=== PATIENT | male | born 1950 | race African-American/Black ===

== ENCOUNTER 2024-03-18 15:42 | Outpatient (REF) | payer MEDICARE, SELFPAY ==
[2024-03-18 17:27] LABS: MANUAL DIFF FLAG NO
[2024-03-18 17:42] LABS: Basophils Absolute Auto 0.1 X10*3/uL (0.0-0.2); Basophils Percent Auto 0.7 % (0-2); Eosinophils Absolute Auto 0.2 X10*3/uL (0.0-0.4); Eosinophils Percent Auto 2.9 % (0-4); Hematocrit 36.3 % (42.0-52.0); Hemoglobin 11.7 g/dl (14.0-18.0); Imm Gran Abs Auto 0.02 X10*3/uL (0.00-0.03); Imm Gran Pct Auto 0.3 % (0.0-0.4); Lymphocytes Percent Auto 28.5 % (20-40); Mean Corpuscular HGB Conc 32.2 g/dl (31.0-36.0); Mean Corpuscular Hemoglobin 28.7 pg (27.0-33.0); Mean Platelet Volume 9.8 fL (9.4-12.4); Monocytes Absolute Auto 0.8 X10*3/uL (0.1-1.2); Monocytes Percent Auto 11.5 % (2-11); Neutrophils Absolute Auto 3.8 x10*3/uL (2.0-8.3); Neutrophils Percent Auto 56.1 % (45-73); Platelet Count 297 X10*3/uL (160-400); Red Blood Count 4.08 X10*6/uL (4.60-5.80); Red Cell Distribution Width 14.4 % (11.0-16.0); White Blood Count 6.8 X10*3/uL (4.8-10.8)
[2024-03-18 17:48] LABS: Anion Gap 13 (12-20); Blood Urea Nitrogen 23 mg/dL (9-16); Calcium 9.6 mg/dL (8.4-10.2); Carbon Dioxide 25 mmol/L (22-29); Chloride 106 mmol/L (96-108); Estimated Glomerular Filt Rate 27; Potassium 3.4 mmol/L (3.3-5.1); Sodium 141 mmol/L (135-145)
[2024-03-18 18:26] LABS: Creatinine Urine 179.78 mg/dL; Protein/Creatinine Ratio, Ur 0.18 (<0.2); Total Protein Urine Random 33 mg/dL (<12)
== END 2024-03-18 15:43 | disposition home or self-care (01) ==
LOC: HO.HKASLDS 15:42
PROVIDERS: Visit Provider Internal Medicine Nephrology
DX: I12.9 Hypertensive chronic kidney disease with stage 1 through stage 4 chronic kidney disease, or unspecified chronic kidney disease (principal); N18.31 Chronic kidney disease, stage 3a
CPT/HCPCS: 36415; 80051; 82310; 82565; 82570; 84156; 84520; 85025

== ENCOUNTER 2024-03-20 14:30 | Outpatient (AMB) | payer MEDICARE, SELFPAY ==
--- NOTE | 2024-03-20 13:36 | HO.NEPHOV_ITS ---
Vital Signs 03/20/24 14:48 Height 6 ft 1 in Weight 230 lb 6 oz BMI 30.4 BP 140/80 H Blood Pressure Location Rt brachial Position Sitting Pulse 48 L Pulse Source Pulse Oximeter Pulse Oximetry (%) 98 Oxygen Delivery Method Room Air Intake Visit Reasons: Previous patient Analytics Architect Required: No Accompanied by: Self / Same As Patient Allergies cat dander Allergy (Verified 03/20/24 14:45) Unknown HPI Comments Details: Eloy seen in the office in follow-up of his chronic kidney disease and hypertension. He has longstanding hypertension as as CKD. 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 He denies any nausea, vomiting, diarrhea, chest pain, shortness of breath, pedal edema, orthostatic symptoms. He does not take any nonsteroidal anti-inflammatories. He is compliant with his medications. He does not monitor his blood pressure closely at home. His weight has been stable. He feels tired. [facility] Medical History (Updated 03/20/24 @ 14:45 by Riddhi Marin MA) CKD stage 3a, GFR 45-59 ml/min Hypertension Angiomyolipoma Secondary hyperparathyroidism (of renal origin) Surgical History (Updated 03/20/24 @ 14:53 by Riddhi Marin MA) History of back surgery Family History (Updated 03/20/24 @ 14:54 by Riddhi Marin MA) Mother Diabetes Hypertension Sister Diabetes Hypertension Social History (Updated 03/20/24 @ 14:52 by Riddhi Marin MA) Alcohol intake: never Patient Tobacco Use Status: Never used Tobacco Use of substances other than those prescribed or required for medical reasons: No Review of Systems Const All systems reviewed & are unremarkable except as noted in HPI and below Physical Exam Vital Signs: Last Vital Signs Pulse 48 L 03/20/24 14:48 BP 140/80 H 03/20/24 14:48 Pulse Ox 98 03/20/24 14:48 Oxygen Delivery Method Room Air 03/20/24 14:48 BMI result Body Mass Index 30.4 Const General: comfortable and no acute distress Orientation/consciousness: patient oriented x3 HEENT Head: Yes normocephalic Mouth: Normal oral and palatal mucosa present Eyes EOM: EOMs intact bilaterally Neck Neck: Yes supple Resp Auscultation: clear to auscultation bilaterally Cardio Jugular venous distension: no JVD Rate: regular rate GI Palpation (GI): Soft to palpation Auscultation: normal bowel sounds General: Yes no CVA tenderness Back/Spine/Pelvis Back: no CVA tenderness Skin General skin exam: no rashes or lesions noted Neuro General: patient oriented x3 and moves all extremities Extrem General: Yes no pedal edema Results Reviewed Nephrology Results: Hgb 11.7 g/dl (14.0-18.0) L 03/18/24 WBC 6.8 X10*3/uL (4.8-10.8) 03/18/24 Plt Count 297 X10*3/uL (160-400) 03/18/24 Sodium 141 mmol/L (135-145) 03/18/24 Potassium 3.4 mmol/L (3.3-5.1) 03/18/24 Chloride 106 mmol/L (96-108) 03/18/24 Carbon Dioxide 25 mmol/L (22-29) 03/18/24 BUN 23 mg/dL (9-16) H 03/18/24 Creatinine 2.39 mg/dL (0.5-1.4) H 03/18/24 Calcium 9.6 mg/dL (8.4-10.2) 03/18/24 Urine Creatinine 179.78 mg/dL 03/18/24 Protein/Creatinin Ratio 0.18 (<0.2) 03/18/24 Assessment & Plan Assessment & Plan (1) CKD stage 3a, GFR 45-59 ml/min: Code(s): N18.31 - Chronic kidney disease, stage 3a Category: Medical (2) Hypertension: Code(s): I10 - Essential (primary) hypertension Category: Medical Qualifiers: Hypertension type: primary hypertension Qualified Code(s): I10 - Essential (primary) hypertension (3) Angiomyolipoma: Code(s): D17.9 - Benign lipomatous neoplasm, unspecified Category: Medical (4) Secondary hyperparathyroidism (of renal origin): Code(s): N25.81 - Secondary hyperparathyroidism of renal origin Category: Medical Plan His blood pressure is currently well controlled. He is not taking spironolactone. He had LUIGI in early 1999 with serum creatinine peaking at 5. 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 His previous documented last 24 hour urine collection for creatinine clearance showed a GFR of 51 mL/minute. He had embolization of angiolipoma by Dr Owen Mcclain. Doppler of his renal arteries an MRI of the kidneys were unremarkable. He has been taking calcitriol for secondary hyperparathyroidism. All his current blood work was reviewed. I did not make any medication changes today. He will need F/U USS. He was encouraged to maintain good hydration and avoid nonsteroidal anti-inflammatories along with sodium low-sodium diet. All questions answered. Follow-up appointment given. Orders: Orders Parathyroid Hormone Intact Today D17.9 - Benign lipomatous neoplasm, unspecified, I10 - Essential (primary) hypertension, N18.31 - Chronic kidney disease, stage 3a, N25.81 - Secondary hyperparathyroidism of renal origin Creatinine Today D17.9 - Benign lipomatous neoplasm, unspecified, I10 - Es sential (primary) hypertension, N18.31 - Chronic kidney disease, stage 3a, N25.81 - Secondary hyperparathyroidism of renal origin Blood Urea Nitrogen Today D17.9 - Benign lipomatous neoplasm, unspecified, I10 - Essential (primary) hypertension, N18.31 - Chronic kidney disease, stage 3a, N25.81 - Secondary hyperparathyroidism of renal origin Vitamin D 25-OH Total Today D17.9 - Benign lipomatous neoplasm, unspecified, I10 - Essential (primary) hypertension, N18.31 - Chronic kidney disease, stage 3a, N25.81 - Secondary hyperparathyroidism of renal origin Electrolytes Today D17.9 - Benign lipomatous neoplasm, unspecified, I10 - Essential (primary) hypertension, N18.31 - Chronic kidney disease, stage 3a, N25.81 - Secondary hyperparathyroidism of renal origin Calcium Today D17.9 - Benign lipomatous neoplasm, unspecified, I10 - Essential (primary) hypertension, N18.31 - Chronic kidney disease, stage 3a, N25.81 - Secondary hyperparathyroidism of renal origin Medications: New amlodipine 10 mg PO DAILY 90 tabs 3RF calcitriol 0.25 mcg PO 3XW 12 caps 4RF Coding Level of Care Code Est Pt Level 4 (84578) Diagnoses CKD stage 3a, GFR 45-59 ml/min N18.31 Primary hypertension I10 Hypertension type: primary hypertension Angiomyolipoma D17.9 Secondary hyperparathyroidism (of renal origin) N25.81
[2024-03-20 14:48] VITALS: BP 140/80; PULSE 48; O2SAT 98; BMI 30.4
== END 2024-03-20 15:27 | disposition home or self-care (01) ==
PROVIDERS: PCP Internal Medicine Pulmonary Disease; Visit Provider Internal Medicine Nephrology
DX: N18.31 Chronic kidney disease, stage 3a (principal); I10 Essential (primary) hypertension; D17.9 Benign lipomatous neoplasm, unspecified; N25.81 Secondary hyperparathyroidism of renal origin
CPT/HCPCS: 99214

== ENCOUNTER → 2024-03-20 14:30 | Outpatient (BNVA) | payer MEDICARE, SELFPAY | PROVIDERS: PCP Internal Medicine Pulmonary Disease; Visit Provider Internal Medicine Nephrology | DX: I12.9 Hypertensive chronic kidney disease with stage 1 through stage 4 chronic kidney disease, or unspecified chronic kidney disease (principal); N18.31 Chronic kidney disease, stage 3a; D17.9 Benign lipomatous neoplasm, unspecified; N25.81 Secondary hyperparathyroidism of renal origin | CPT/HCPCS: 99212 ==

== ENCOUNTER 2024-07-14 09:57 | Outpatient (REF) | payer MEDICARE, SELFPAY ==
[2024-07-14 13:44] LABS: Anion Gap 14 (12-20); Blood Urea Nitrogen 24 mg/dL (9-16); Calcium 9.4 mg/dL (8.4-10.2); Carbon Dioxide 25 mmol/L (22-29); Chloride 110 mmol/L (96-108); Estimated Glomerular Filt Rate 24; Potassium 3.5 mmol/L (3.3-5.1); Sodium 145 mmol/L (135-145)
[2024-07-14 14:08] LABS: Parathyroid Hormone Intact 298.6 pg/mL (8.7-77.1)
== END 2024-07-14 09:58 | disposition home or self-care (01) ==
LOC: HO.HMGCLDS 09:57
PROVIDERS: Visit Provider Internal Medicine Nephrology
DX: N25.81 Secondary hyperparathyroidism of renal origin (principal); D17.9 Benign lipomatous neoplasm, unspecified; I10 Essential (primary) hypertension; N18.31 Chronic kidney disease, stage 3a
CPT/HCPCS: 36415; 80051; 82306; 82310; 82565; 83970; 84520

== ENCOUNTER 2024-07-17 13:19 | Outpatient (AMB) | payer MEDICARE, SELFPAY ==
--- NOTE | 2024-07-17 13:26 | HO.NEPHOV ---
Vital Signs 07/17/24 13:28 Height 6 ft 1 in Weight 236 lb 6 oz BMI 31.2 BP 130/80 Blood Pressure Location Lt brachial Position Sitting Pulse 49 L Pulse Source Pulse Oximeter Pulse Oximetry (%) 99 Oxygen Delivery Method Room Air Intake Visit Reasons: 3-4 mon follow up-[facility] Train Gateman Required: No Accompanied by: Self / Same As Patient Allergies cat dander Allergy (Verified 07/17/24 13:27) Unknown HPI Comments Details: Eloy seen in the office in follow-up of his chronic kidney disease and hypertension. He has longstanding hypertension as as CKD. 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 He denies any nausea, vomiting, diarrhea, chest pain, shortness of breath, pedal edema, orthostatic symptoms. He does not take any nonsteroidal anti-inflammatories. He is compliant with his medications. His weight has been stable. [facility] Medical History (Updated 07/17/24 @ 13:58 by Eyad Spears MD) CKD stage 3a, GFR 45-59 ml/min Hypertension Angiomyolipoma Secondary hyperparathyroidism (of renal origin) Surgical History History of back surgery Family History Mother Diabetes Hypertension Sister Diabetes Hypertension Social History Alcohol intake: never Patient Tobacco Use Status: Never used Tobacco Review of Systems Const All systems reviewed & are unremarkable except as noted in HPI and below Physical Exam Vital Signs: Last Vital Signs Pulse 49 L 07/17/24 13:28 BP 130/80 07/17/24 13:28 Pulse Ox 99 07/17/24 13:28 Oxygen Delivery Method Room Air 07/17/24 13:28 BMI result Body Mass Index 31.2 Results Reviewed Nephrology Results: Hgb 11.7 g/dl (14.0-18.0) L 03/18/24 WBC 6.8 X10*3/uL (4.8-10.8) 03/18/24 Plt Count 297 X10*3/uL (160-400) 07/23/24 Sodium 145 mmol/L (135-145) 07/14/24 Potassium 3.5 mmol/L (3.3-5.1) 07/14/24 Chloride 110 mmol/L (96-108) H 07/14/24 Carbon Dioxide 25 mmol/L (22-29) 07/14/24 BUN 24 mg/dL (9-16) H 07/14/24 Creatinine 2.63 mg/dL (0.5-1.4) H 07/14/24 Calcium 9.4 mg/dL (8.4-10.2) 07/14/24 PTH Intact 298.6 pg/mL (8.7-77.1) H 07/14/24 Urine Creatinine 179.78 mg/dL 03/18/24 Protein/Creatinin Ratio 0.18 (<0.2) 03/18/24 Assessment & Plan Assessment & Plan (1) CKD stage 3a, GFR 45-59 ml/min: Code(s): N18.31 - Chronic kidney disease, stage 3a Category: Medical (2) Hypertension: Code(s): I10 - Essential (primary) hypertension Category: Medical Qualifiers: Hypertension type: primary hypertension Qualified Code(s): I10 - Essential (primary) hypertension (3) Secondary hyperparathyroidism (of renal origin): Code(s): N25.81 - Secondary hyperparathyroidism of renal origin Category: Medical (4) Hypokalemia: Code(s): E87.6 - Hypokalemia Category: Medical Plan His blood pressure needs to be well controlled. I started him on spironolactone 12.5 mg daily after reducing Amlodipine to 5 mg ( has edema on 10 mg).. He had LUIGI in early 1999 with serum creatinine peaking at 5. 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 His previous documented last 24 hour urine collection for creatinine clearance showed a GFR of 51 mL/minute( shall repeat after next visit). He had embolization of angiolipoma by Dr Owen Mcclain. Doppler of his renal arteries an MRI of the kidneys were unremarkable. He has been taking calcitriol for secondary hyperparathyroidism. All his current blood work was reviewed. He will need F/U USS. He was encouraged to maintain good hydration and avoid nonsteroidal anti-inflammatories along with sodium low-sodium diet. All questions answered. Follow-up appointment given Orders: Orders Creatinine 3 Months N18.31 - Chronic kidney disease, stage 3a Complete Blood Count Auto Diff 3 Months N18.31 - Chronic kidney disease, stage 3a Blood Urea Nitrogen 3 Months N18.31 - Chronic kidney disease, stage 3a Electrolytes 3 Months N18.31 - Chronic kidney disease, stage 3a Calcium 3 Months N18.31 - Chronic kidney disease, stage 3a Medications: New spironolactone 12.5 mg (1/2 x 25 mg) PO DAILY 15 tabs 4RF 30 days Changed From amlodipine 10 mg PO DAILY 90 tabs 3RF To amlodipine 5 mg PO DAILY 30 tabs 7RF Coding Level of Care Code Est Pt Level 4 (12854) Diagnoses CKD stage 3a, GFR 45-59 ml/min N18.31 Primary hypertension I10 Hypertension type: primary hypertension Secondary hyperparathyroidism (of renal origin) N25.81 Hypokalemia E87.6
[2024-07-17 13:28] VITALS: BP 130/80; PULSE 49; O2SAT 99; BMI 31.2
== END 2024-07-17 14:13 | disposition home or self-care (01) ==
PROVIDERS: PCP Internal Medicine Pulmonary Disease; Visit Provider Internal Medicine Nephrology
DX: N18.31 Chronic kidney disease, stage 3a (principal); I10 Essential (primary) hypertension; N25.81 Secondary hyperparathyroidism of renal origin; E87.6 Hypokalemia
CPT/HCPCS: 99214

== ENCOUNTER → 2024-07-17 13:19 | Outpatient (BNVA) | payer MEDICARE, SELFPAY | PROVIDERS: PCP Internal Medicine Pulmonary Disease; Visit Provider Internal Medicine Nephrology | DX: I12.9 Hypertensive chronic kidney disease with stage 1 through stage 4 chronic kidney disease, or unspecified chronic kidney disease (principal); N18.31 Chronic kidney disease, stage 3a; N25.81 Secondary hyperparathyroidism of renal origin; E87.6 Hypokalemia | CPT/HCPCS: 99212 ==

== ENCOUNTER 2024-10-14 14:42 | Outpatient (REF) | payer MEDICARE, SELFPAY ==
--- OUTSIDE RECORDS SUMMARY | 2024-10-14 15:43 | XMS_ITS | Encounter Summary ---
Author Organization [facility] Address [address] [place] [address] Phone Care Team Providers Care Presiding Judge Name Role Phone Varsha Chavis NP Primary Care Provider [phone] Encounter Details Date Type Department Care Team ([facility] st Contact Info) Description 12/06/2022 Telephone [facility] [address] [place] [address] Antoinette Carmona Social History Tobacco Use Types Packs/Day Years Used Date Smoking Tobacco: Former Smokeless Tobacco: Never Alcohol Use Standard Drinks/Week Comments Yes 0 (1 standard drink = 0.6 oz pure alcohol) Alcoholic Drinks/day: Occasional social drink Sex and Gender Information Value Date Recorded Sex Assigned at Not on file Legal Sex Male 5:26 PM EST Gender Identity Not on file Sexual Orientation Not on file documented as of this encounter Miscellaneous Notes * Telephone Encounter - Riddhi Marin MA - 12/25/2022 3:00 PM EDT Appointment made and mailed to pt. * Telephone Encounter - Riddhi Marin MA - 12/12/2022 1:38 PM EDT Refill sent to Dr Spears for sig * Telephone Encounter - Antoinette Carmona - 12/06/2022 2:38 PM EDT Pt request refill for doxazosin (CARDURA) 4 MG tablet, Please send to [facility]. documented in this encounter Plan of Treatment Not on file documented as of this encounter Visit Diagnoses Not on filedocumented in this encounter Care Teams Presiding Judge Relationship Specialty Start Date End Date Varsha Chavis NP [address] [place] [address] PCP - General Nurse Practitioner 11/15/21 documented as of this encounter
--- OUTSIDE RECORDS SUMMARY | 2024-10-14 15:43 | XMS_ITS | Clinical Summary ---
Author Organization [facility] Address [address] [facility] [address] [place] [address] Phone Care Team Providers Care Box Blank Machine Operator Name Role Phone Varsha Chavis NP Primary Care Provider [phone] Allergies Active Allergy Reactions Criticality Noted Date Comments Cat Dander 07/05/2021 Medications amLODIPine (NORVASC) 10 MG tablet Take 1 tablet by mouth 1 (one) time each day 05/27/2018 Active Cholecalciferol 50 MCG (2000 UT) capsule Take 1 capsule by mouth 3 (three) times a week Active ferrous sulfate 325 (65 Fe) MG tablet Take 1 tablet by mouth 1 (one) time each day Active metoprolol tartrate (LOPRESSOR) 50 MG tablet Take 1 tablet by mouth 2 (two) times a day 03/28/2018 Active tamsulosin (FLOMAX) 0.4 MG 24 hr capsule Take 2 capsules by mouth 1 (one) time each day Active doxazosin (CARDURA) 4 MG tablet Take 1 tablet (4 mg total) by mouth 1 (one) time each day 90 tablet 3 02/08/2023 Active calcitriol (ROCALTROL) 0.25 MCG capsule TAKE 1 CAPSULE BY MOUTH 3 TIMES WEEKLY 36 capsule 2 05/25/2023 Active Active Problems Problem Noted Date Diagnosed Date Chronic kidney disease stage 2 11/15/2021 Hypertension 07/05/2021 Secondary hyperparathyroidism of renal origin 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 12/27/2020 Hyperaldosteronism 12/27/2020 Hypertensive disorder 12/27/2020 Hypertensive renal disease 12/27/2020 Hypokalemia 12/27/2020 Family History Medical History Relation Comments Diabetes Mother Hypertension Mother Kidney disease Mother Hypertension Sibling sisters x3 Relation Status Comments Father Mother Alive Sibling Social History Tobacco Use Types Packs/Day Years Used Date Smoking Tobacco: Former Smokeless Tobacco: Never Tobacco Cessation:Counseling Given: Not Answered Alcohol Use Standard Drinks/Week Comments Yes 0 (1 standard drink = 0.6 oz pure alcohol) Alcoholic Drinks/day: Occasional social drink Sex and Gender Information Value Date Recorded Sex Assigned at Not on file Legal Sex Male 5:26 PM EST Gender Identity Not on file Sexual Orientation Not on file Last Filed Vital Signs Vital Sign Reading Time Taken Comments Blood Pressure 122/78 02/08/2023 3:56 PM EDT Pulse 71 02/08/2023 3:56 PM EDT Temperature - - Respiratory Rate - - Oxygen Saturation 98% 07/05/2021 1:11 PM EST Inhaled Oxygen Concentration - - Weight 106 kg (234 lb) 02/08/2023 3:56 PM EDT Height 185.4 cm (6' 1 ) 06/29/2020 12:01 PM EST Body Mass Index 30.87 06/29/2020 12:01 PM EST Plan of Treatment Health Maintenance Due Date Last Done Comments Pneumococcal Vaccine: 65+ Ye ars (1 of 2 - PCV) 1958 Colorectal Cancer Screening: Annual FOBT 2001 Colorectal Cancer Screening: Colonoscopy 2001 Colorectal Cancer Screening: Sigmoidoscopy 2001 Influenza Vaccine (#1) 2024 Hepatitis B Vaccine Aged Out No longe r eligible based on patient's age to complete this topic Insurance [employer] [facility] ADV PPO ([id number]) [employer] ADV PPO ([id number]) Care Teams Box Blank Machine Operator Relationship Specialty Start Date End Date Varsha Chavis NP [address] [place] [address] PCP - General Nurse Practitioner 11/15/21
[2024-10-14 17:45] LABS: MANUAL DIFF FLAG NO
[2024-10-14 17:58] LABS: Basophils Absolute Auto 0.1 X10*3/uL (0.0-0.2); Eosinophils Absolute Auto 0.2 X10*3/uL (0.0-0.4); Eosinophils Percent Auto 2.5 % (0-4); Hematocrit 37.7 % (42.0-52.0); Hemoglobin 11.8 g/dl (14.0-18.0); Imm Gran Abs Auto 0.02 X10*3/uL (0.00-0.03); Imm Gran Pct Auto 0.3 % (0.0-0.4); Lymphocytes Percent Auto 25.8 % (20-40); Mean Corpuscular HGB Conc 31.3 g/dl (31.0-36.0); Mean Corpuscular Hemoglobin 28.6 pg (27.0-33.0); Mean Corpuscular Volume 91.5 fL (80.0-98.0); Mean Platelet Volume 10.8 fL (9.4-12.4); Monocytes Absolute Auto 0.7 X10*3/uL (0.1-1.2); Monocytes Percent Auto 9.6 % (2-11); Neutrophils Absolute Auto 4.7 x10*3/uL (2.0-8.3); Neutrophils Percent Auto 60.8 % (45-73); Platelet Count 266 X10*3/uL (160-400); Red Blood Count 4.12 X10*6/uL (4.60-5.80); Red Cell Distribution Width 14.8 % (11.0-16.0); White Blood Count 7.6 X10*3/uL (4.8-10.8)
[2024-10-14 18:08] LABS: Anion Gap 12 (12-20); Blood Urea Nitrogen 30 mg/dL (9-16); Calcium 9.1 mg/dL (8.4-10.2); Carbon Dioxide 23 mmol/L (22-29); Chloride 109 mmol/L (96-108); Estimated Glomerular Filt Rate 26; Potassium 4.2 mmol/L (3.3-5.1); Sodium 140 mmol/L (135-145)
== END 2024-10-14 14:43 | disposition home or self-care (01) ==
LOC: HO.HKASLDS 14:42
PROVIDERS: Visit Provider Internal Medicine Nephrology
DX: N18.31 Chronic kidney disease, stage 3a (principal)
CPT/HCPCS: 36415; 80051; 82310; 82565; 84520; 85025

== ENCOUNTER 2024-10-16 13:56 | Outpatient (AMB) | payer MEDICARE, SELFPAY ==
--- NOTE | 2024-10-16 14:02 | HO.NEPHOV_ITS ---
Vital Signs 10/16/24 14:04 Height 6 ft 1 in Weight 239 lb BMI 31.5 BP 130/80 Blood Pressure Location Lt brachial Position Sitting Pulse 57 Pulse Source Pulse Oximeter Pulse Oximetry (%) 98 Oxygen Delivery Method Room Air Intake Visit Reasons: 3-4 mon follow up-[facility] Tree Trimmer Helper Required: No Accompanied by: Self / Same As Patient Allergies cat dander Allergy (Verified 10/16/24 14:04) Unknown HPI Comments Details: Eloy was seen in the office in follow-up of his chronic kidney disease and hypertension. He has longstanding hypertension as as CKD. 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 He denies any nausea, vomiting, diarrhea, chest pain, shortness of breath, pedal edema, orthostatic symptoms. He does not take any nonsteroidal anti-inflammatories. He is compliant with his medications. He does not monitor his blood pressure closely at home. His weight has been stable. He feels tired. [facility] Medical History (Updated 07/17/24 @ 13:58 by Eyad Spears MD) CKD stage 3a, GFR 45-59 ml/min Hypertension Angiomyolipoma Secondary hyperparathyroidism (of renal origin) Surgical History History of back surgery Family History Mother Diabetes Hypertension Sister Diabetes Hypertension Social History Alcohol intake: never Patient Tobacco Use Status: Never used Tobacco Review of Systems Const All systems reviewed & are unremarkable except as noted in HPI and below Physical Exam Const General: comfortable and no acute distress Orientation/consciousness: patient oriented x3 HEENT Head: Yes normocephalic Mouth: Normal oral and palatal mucosa present Eyes EOM: EOMs intact bilaterally Neck Neck: Yes supple Resp Auscultation: clear to auscultation bilaterally Cardio Jugular venous distension: no JVD Rate: regular rate GI Palpation (GI): Soft to palpation Auscultation: normal bowel sounds General: Yes no CVA tenderness Back/Spine/Pelvis Back: no CVA tenderness Skin General skin exam: no rashes or lesions noted Neuro General: patient oriented x3 and moves all extremities Extrem General: Yes no pedal edema Results Reviewed Nephrology Results: Hgb 11.8 g/dl (14.0-18.0) L 10/14/24 WBC 7.6 X10*3/uL (4.8-10.8) 10/14/24 Plt Count 266 X10*3/uL (160-400) 10/14/24 Sodium 140 mmol/L (135-145) 10/14/24 Potassium 4.2 mmol/L (3.3-5.1) 10/14/24 Chloride 109 mmol/L (96-108) H 10/14/24 Carbon Dioxide 23 mmol/L (22-29) 10/14/24 BUN 30 mg/dL (9-16) H 10/14/24 Creatinine 2.44 mg/dL (0.5-1.4) H 10/14/24 Calcium 9.1 mg/dL (8.4-10.2) 10/14/24 Assessment & Plan Assessment & Plan (1) CKD stage 3a, GFR 45-59 ml/min: Code(s): N18.31 - Chronic kidney disease, stage 3a Category: Medical (2) Hypertension: Code(s): I10 - Essential (primary) hypertension Category: Medical Qualifiers: Hypertension type: primary hypertension Qualified Code(s): I10 - Essential (primary) hypertension (3) Angiomyolipoma: Code(s): D17.9 - Benign lipomatous neoplasm, unspecified Category: Medical (4) Secondary hyperparathyroidism (of renal origin): Code(s): N25.81 - Secondary hyperparathyroidism of renal origin Category: Medical Plan His blood pressure is currently well controlled. He is not taking spironolactone. He had LUIGI in early 1999 with serum creatinine peaking at 5. 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 His previous documented last 24 hour urine collection for creatinine clearance showed a GFR of 51 mL/minute. He had embolization of angiolipoma by Dr Owen Mcclain. Doppler of his renal arteries an MRI of the kidneys were unremarkable. He has been taking calcitriol for secondary hyperparathyroidism. All his current blood work was reviewed. I did not make any medication changes today. He will need F/U USS. He was encouraged to maintain good hydration and avoid nonsteroidal anti-inflammatories along with sodium low-sodium diet. All questions answered. Follow-up appointment given Orders: Orders Parathyroid Hormone Intact 3 Months D17.9 - Benign lipomatous neoplasm, unspecified, I10 - Essential (primary) hypertension, N18.31 - Chronic kidney disease, stage 3a, N25.81 - Secondary hyperparathyroidism of renal origin Phosphorus 3 Months D17.9 - Benign lipomatous neoplasm, unspecified, I10 - Essential (primary) hypertension, N18.31 - Chronic kidney disease, stage 3a, N25.81 - Secondary hyperparathyroidism of renal origin Electrolytes 3 Months D17.9 - Benign lipomatous neoplasm, unspecified, I10 - Essential (primary) hypertension, N18.31 - Chronic kidney disease, stage 3a, N25.81 - Secondary hyperparathyroidism of renal origin Calcium 3 Months D17.9 - Benign lipomatous neoplasm, unspecified, I10 - Essential (primary) hypertension, N18.31 - Chronic kidney disease, stage 3a, N25.81 - Secondary hyperparathyroidism of renal origin Creatinine 3 Months D17.9 - Benign lipomatous neoplasm, unspecified, I10 - Essential (primary) hypertension, N18.31 - Chronic kidney disease, stage 3a, N25.81 - Secondary hyperparathyroidism of renal origin Vitamin D 25-OH Total 3 Months D17.9 - Benign lipomatous neoplasm, unspecified, I10 - Essential (primary) hypertension, N18.31 - Chronic kidney disease, stage 3a, N25.81 - Secondary hyperparathyroidism of renal origin Complete Blood Count Auto Diff 3 Months D17.9 - Benign lipomatous neoplasm, unspecified, I10 - Essential (primary) hypertension, N18.31 - Chronic kidney disease, stage 3a, N25.81 - Secondary hyperparathyroidism of renal origin Blood Urea Nitrogen 3 Months D17.9 - Benign lipomatous neoplasm, unspecified, I10 - Essential (primary) hypertension, N18.31 - Chronic kidney disease, stage 3a, N25.81 - Secondary hyperparathyroidism of renal origin Coding Level of Care Code Est Pt Level 4 (79333) Diagnoses CKD stage 3a, GFR 45-59 ml/min N18.31 Primary hypertension I10 Hypertension type: primary hypertension Angiomyolipoma D17.9 Secondary hyperparathyroidism (of renal origin) N25.81
[2024-10-16 14:04] VITALS: BP 130/80; PULSE 57; O2SAT 98; BMI 31.5
--- OUTSIDE RECORDS SUMMARY | 2024-10-16 14:58 | XMS_ITS | Encounter Summary ---
Author Organization [facility] Address [address] [place] [address] Phone Care Team Providers Care Pricing Supervisor Name Role Phone Varsha Chavis NP Primary Care Provider [phone] Encounter Details Date Type Department Care Team ([facility] st Contact Info) Description 12/06/2022 Telephone [facility] [address] [place] [address] Antoinette Carmona Social History Tobacco Use [...] (CARDURA) 4 MG tablet, Please send to [facility]. documented in this encounter Plan of Treatment Not on file documented as of this encounter Visit Diagnoses Not on filedocumented in this encounter Care Teams Pricing Supervisor Relationship Specialty Start Date End Date Varsha Chavis NP [address] [place] [address] PCP - General Nurse Practitioner 11/15/21 documented as of this encounter
--- OUTSIDE RECORDS SUMMARY | 2024-10-16 14:58 | XMS_ITS | Clinical Summary ---
Author Organization [facility] Address [address] [facility] [address] [place] [address] Phone Care Team Providers Care Fire Regulator Name Role Phone Varsha Chavis NP Primary Care Provider Allergies Active Allergy Reactions Criticality Noted Date [...] age to complete this topic Insurance [employer] [facility] ADV PPO ([id number]) [employer] ADV PPO ([id number]) Care Teams Fire Regulator Relationship Specialty Start Date End Date Varsha Chavis NP [address] [place] [address] PCP - General Nurse Practitioner 11/15/21
== END 2024-10-16 14:33 | disposition home or self-care (01) ==
PROVIDERS: PCP Internal Medicine Pulmonary Disease; Visit Provider Internal Medicine Nephrology
DX: N18.31 Chronic kidney disease, stage 3a (principal); I10 Essential (primary) hypertension; D17.9 Benign lipomatous neoplasm, unspecified; N25.81 Secondary hyperparathyroidism of renal origin
CPT/HCPCS: 99214

== ENCOUNTER → 2024-10-16 13:56 | Outpatient (BNVA) | payer MEDICARE, SELFPAY | PROVIDERS: PCP Internal Medicine Pulmonary Disease; Visit Provider Internal Medicine Nephrology | DX: I12.9 Hypertensive chronic kidney disease with stage 1 through stage 4 chronic kidney disease, or unspecified chronic kidney disease (principal); N18.31 Chronic kidney disease, stage 3a; D17.9 Benign lipomatous neoplasm, unspecified; N25.81 Secondary hyperparathyroidism of renal origin | CPT/HCPCS: 99212 ==

== ENCOUNTER 2025-02-05 15:07 | Outpatient (REF) | payer MEDICARE, SELFPAY ==
[2025-02-05 17:29] LABS: MANUAL DIFF FLAG NO
[2025-02-05 17:40] LABS: Basophils Absolute Auto 0.1 X10*3/uL (0.0-0.2); Basophils Percent Auto 0.8 % (0-2); Eosinophils Absolute Auto 0.2 X10*3/uL (0.0-0.4); Eosinophils Percent Auto 3.1 % (0-4); Hematocrit 37.2 % (42.0-52.0); Hemoglobin 11.9 g/dl (14.0-18.0); Imm Gran Abs Auto 0.02 X10*3/uL (0.00-0.03); Imm Gran Pct Auto 0.3 % (0.0-0.4); Lymphocytes Absolute Auto 2.1 X10*3/uL (1.2-4.9); Lymphocytes Percent Auto 28.7 % (20-40); Mean Corpuscular Hemoglobin 29.2 pg (27.0-33.0); Mean Corpuscular Volume 91.4 fL (80.0-98.0); Mean Platelet Volume 10.2 fL (9.4-12.4); Monocytes Percent Auto 13.4 % (2-11); Neutrophils Absolute Auto 3.8 x10*3/uL (2.0-8.3); Neutrophils Percent Auto 53.7 % (45-73); Platelet Count 288 X10*3/uL (160-400); Red Blood Count 4.07 X10*6/uL (4.60-5.80); Red Cell Distribution Width 14.9 % (11.0-16.0); White Blood Count 7.2 X10*3/uL (4.8-10.8)
--- OUTSIDE RECORDS SUMMARY | 2025-02-05 17:45 | XMS_ITS | Clinical Summary ---
Author Organization [facility] Address [address] [facility] [address] [place] [address] Phone Care Team Providers Care Design Supervisor Name Role Phone Varsha Chavis NP [...] Due Date Last Done Comments Pneumococcal Vaccine: 50+ Ye ars (1 of 2 - PCV) 1971 Colorectal Cancer Screening: Annual FOBT 2001 Colorectal Cancer Screening: Colonoscopy 2001 Colorectal Cancer Screening: Sigmoidoscopy 2001 Influenza Vaccine (Season Ended) 2025 Hepatitis B Vaccine Aged Out No longe r eligible based on patient's age to complete this topic Insurance Aetna [facility] Adv PPO ([id number]) Aetna MCR Adv PPO ([id number]) Care Teams Design Supervisor Relationship Specialty Start Date End Date Varsha Chavis NP [address] [place] [address] PCP - General Nurse Practitioner 11/15/21
[2025-02-05 17:57] LABS: Anion Gap 12 (12-20); Blood Urea Nitrogen 39 mg/dL (9-16); Calcium 9.3 mg/dL (8.4-10.2); Carbon Dioxide 25 mmol/L (22-29); Chloride 108 mmol/L (96-108); Estimated Glomerular Filt Rate 19; Phosphorus 3.5 mg/dL (2.7-4.5); Potassium 4.6 mmol/L (3.3-5.1); Sodium 140 mmol/L (135-145)
[2025-02-05 18:10] LABS: Parathyroid Hormone Intact 381.9 pg/mL (8.7-77.1)
== END 2025-02-05 15:08 | disposition home or self-care (01) ==
LOC: HO.HKASLDS 15:07
PROVIDERS: Visit Provider Internal Medicine Nephrology
DX: I12.9 Hypertensive chronic kidney disease with stage 1 through stage 4 chronic kidney disease, or unspecified chronic kidney disease (principal); N18.31 Chronic kidney disease, stage 3a; D17.9 Benign lipomatous neoplasm, unspecified; N25.81 Secondary hyperparathyroidism of renal origin
CPT/HCPCS: 36415; 80051; 82306; 82310; 82565; 83970; 84100; 84520; 85025

== ENCOUNTER 2025-02-10 15:10 | Outpatient (AMB) | payer MEDICARE, SELFPAY ==
[2025-02-10 15:14] VITALS: BP 142/84; PULSE 56; O2SAT 99; BMI 31.5
--- NOTE | 2025-02-10 15:14 | HO.NEPHOV ---
Vital Signs 02/10/25 15:14 Height 6 ft 1 in Weight 239 lb BMI 31.5 BP 142/84 H Blood Pressure Location Lt brachial Position Sitting Pulse 56 Pulse Source Pulse Oximeter Pulse Oximetry (%) 99 Oxygen Delivery Method Room Air Intake Visit Reasons: 4 mo follow up-Conf Front Office Attendant Required: No Accompanied by: Self / Same As Patient Allergies cat dander Allergy (Verified 02/10/25 15:15) Unknown HPI Comments Details: Eloy was seen in the office in follow-up of his chronic kidney disease and hypertension. He has longstanding hypertension as as CKD. 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 He denies any nausea, vomiting, diarrhea, chest pain, shortness of breath, pedal edema, orthostatic symptoms. He does not take any nonsteroidal anti-inflammatories. He is compliant with his medications. He does not monitor his blood pressure closely at home. His weight has been stable. He feels tired. [facility] Medical History (Updated 02/10/25 @ 15:32 by Eyad Spears MD) CKD stage 3a, GFR 45-59 ml/min Hypertension Angiomyolipoma Secondary hyperparathyroidism (of renal origin) Surgical History History of back surgery Family History Mother Diabetes Hypertension Sister Diabetes Hypertension Social History Alcohol intake: never Patient Tobacco Use Status: Never used Tobacco Review of Systems Const All systems reviewed & are unremarkable except as noted in HPI and below Physical Exam Vital Signs: Last Vital Signs Pulse 56 02/10/25 15:14 BP 142/84 H 02/10/25 15:14 Pulse Ox 99 02/10/25 15:14 Oxygen Delivery Method Room Air 02/10/25 15:14 BMI result Body Mass Index 31.5 Const General: comfortable and no acute distress Orientation/consciousness: patient oriented x3 HEENT Head: Yes normocephalic Mouth: Normal oral and palatal mucosa present Eyes EOM: EOMs intact bilaterally Neck Neck: Yes supple Resp Auscultation: clear to auscultation bilaterally Cardio Jugular venous distension: no JVD Rate: regular rate GI Palpation (GI): Soft to palpation Auscultation: normal bowel sounds General: Yes no CVA tenderness Back/Spine/Pelvis Back: no CVA tenderness Skin General skin exam: no rashes or lesions noted Neuro General: patient oriented x3 and moves all extremities Extrem General: Yes no pedal edema Results Reviewed Nephrology Results: Hgb 11.9 g/dl (14.0-18.0) L 02/05/25 WBC 7.2 X10*3/uL (4.8-10.8) 02/05/25 Plt Count 288 X10*3/uL (160-400) 02/05/25 Sodium 140 mmol/L (135-145) 02/05/25 Potassium 4.6 mmol/L (3.3-5.1) 02/05/25 Chloride 108 mmol/L (96-108) 02/05/25 Carbon Dioxide 25 mmol/L (22-29) 02/05/25 BUN 39 mg/dL (9-16) H 02/05/25 Creatinine 3.16 mg/dL (0.5-1.4) H 02/05/25 Calcium 9.3 mg/dL (8.4-10.2) 02/05/25 Phosphorus 3.5 mg/dL (2.7-4.5) 02/05/25 PTH Intact 381.9 pg/mL (8.7-77.1) H 02/05/25 Urine Creatinine 179.78 mg/dL 03/18/24 Protein/Creatinin Ratio 0.18 (<0.2) 03/18/24 Assessment & Plan Assessment & Plan (1) LUIGI (acute kidney injury): Code(s): N17.9 - Acute kidney failure, unspecified Category: Medical (2) CKD stage 3a, GFR 45-59 ml/min: Code(s): N18.31 - Chronic kidney disease, stage 3a Category: Medical (3) Angiomyolipoma: Code(s): D17.9 - Benign lipomatous neoplasm, unspecified Category: Medical (4) Hypertension: Code(s): I10 - Essential (primary) hypertension Category: Medical Qualifiers: Hypertension type: primary hypertension Qualified Code(s): I10 - Essential (primary) hypertension (5) Secondary hyperparathyroidism (of renal origin): Code(s): N25.81 - Secondary hyperparathyroidism of renal origin Category: Medical Plan His blood pressure is currently well controlled. He had LUIGI in early 1999 with serum creatinine peaking at 5. 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 His previous documented last 24 hour urine collection for creatinine clearance showed a GFR of 51 mL/minute. He had embolization of angiolipoma by Dr Owen Mcclain. Doppler of his renal arteries an MRI of the kidneys were unremarkable. His serum creatinine has gone up. I ordered renal USS. He may be having some ATN. He has been taking calcitriol for secondary hyperparathyroidism. All his current blood work was reviewed. I did not make any medication changes today. He was encouraged to maintain good hydration and avoid nonsteroidal anti-inflammatories along with sodium low-sodium diet. All questions answered. Follow-up appointment given Orders: Orders US renal BI 1 Week N17.9 - Acute kidney failure, unspecified Electrolytes 3 Weeks N17.9 - Acute kidney failure, unspecified Blood Urea Nitrogen 3 Weeks N17.9 - Acute kidney failure, unspecified Creatinine 3 Weeks N17.9 - Acute kidney failure, unspecified Calcium 3 Weeks N17.9 - Acute kidney failure, unspecified Coding Level of Care Code Est Pt Level 4 (59238) Diagnoses LUIGI (acute kidney injury) N17.9 CKD stage 3a, GFR 45-59 ml/min N18.31 Angiomyolipoma D17.9 Primary hypertension I10 Hypertension type: primary hypertension Secondary hyperparathyroidism (of renal origin) N25.81
--- OUTSIDE RECORDS SUMMARY | 2025-02-10 17:41 | XMS_ITS | Clinical Summary ---
Author Organization [facility] Address [address] [facility] [address] [place] [address] Phone Care Team Providers Care Butcher Assistant Name Role Phone Varsha Chavis NP Primary [...] age to complete this topic Insurance Aetna [facility] Adv PPO ([id number]) Aetna MCR Adv PPO ([id number]) Care Teams Butcher Assistant Relationship Specialty Start Date End Date Varsha Chavis NP [address] [place] [address] PCP - General Nurse Practitioner 11/15/21
== END 2025-02-10 15:41 | disposition home or self-care (01) ==
LOC: HO.HKAS 15:11
PROVIDERS: PCP Internal Medicine Pulmonary Disease; Visit Provider Internal Medicine Nephrology
DX: N17.9 Acute kidney failure, unspecified (principal); N18.31 Chronic kidney disease, stage 3a; D17.9 Benign lipomatous neoplasm, unspecified; I10 Essential (primary) hypertension; N25.81 Secondary hyperparathyroidism of renal origin
CPT/HCPCS: 99214

== ENCOUNTER → 2025-02-10 15:10 | Outpatient (BNVA) | payer MEDICARE, SELFPAY | PROVIDERS: PCP Internal Medicine Pulmonary Disease; Visit Provider Internal Medicine Nephrology | DX: I12.9 Hypertensive chronic kidney disease with stage 1 through stage 4 chronic kidney disease, or unspecified chronic kidney disease (principal); N18.31 Chronic kidney disease, stage 3a; N17.9 Acute kidney failure, unspecified; N25.81 Secondary hyperparathyroidism of renal origin; D17.9 Benign lipomatous neoplasm, unspecified | CPT/HCPCS: 99212 ==

== ENCOUNTER 2025-03-04 11:44 | Outpatient (REF) | payer MEDICARE, SELFPAY ==
--- NOTE | ~2025-03-04 | US_ITS ---
CLINICAL HISTORY: N17.9 - Acute kidney failure, unspecified --- Additional Notes or Special Instructions: H O angiomyolipoma S P embolization US Renal Comparison: None provided Findings: Right kidney normal size and echotexture, 9.5 x 4.4 x 5.0 cm. Diffusely increased echogenicity. Multiple cysts, the largest 1 within the midpole measures 2.5 x 2.1 x 2.3 cm Left kidney normal size and echotexture, 8.9 x 4.4 x 4.4 cm. Multiple exophytic cysts, the largest stone measuring 1.9 x 2.0 x 1.7 cm. No hydronephrosis of either kidney. Normal color Doppler IMPRESSION: 1. Multiple exophytic cysts are noted bilaterally, the largest stone measuring up to 2.5 cm. 2. No hydronephrosis or evidence of nephrolithiasis. 3. Diffusely increased echogenicity of both kidneys, may represent medical renal disease. This document has been electronically signed by: Nieves Shearer MD on 03/04/2025 19:40:35
--- OUTSIDE RECORDS SUMMARY | 2025-03-04 12:57 | XMS_ITS | Clinical Summary ---
Author Organization [facility] Address [address] [facility] [address] [place] [address] Phone Care Team Providers Care Personal Banker Name Role Phone Varsha Chavis NP Primary [...] Cancer Screening: Sigmoidoscopy 2001 Influenza Vaccine (#1) 2025 Hepatitis B Vaccine Aged Out No longe r eligible based on patient's age to complete this topic Insurance Aetna [facility] Adv PPO ([id number]) Aetna MCR Adv PPO ([id number]) Care Teams Personal Banker Relationship Specialty Start Date End Date Varsha Chavis NP [address] [place] [address] PCP - General Nurse Practitioner 11/15/21
== END 2025-03-04 11:45 | disposition home or self-care (01) ==
LOC: HO.US 11:44
PROVIDERS: Visit Provider Internal Medicine Nephrology
DX: N17.9 Acute kidney failure, unspecified (principal)
CPT/HCPCS: 76775

== ENCOUNTER → 2025-03-04 11:50 | Outpatient (BNV) | payer MEDICARE, SELFPAY | PROVIDERS: Visit Provider Student in an Organized Health Care Education/Training Program | DX: N17.9 Acute kidney failure, unspecified (principal) | CPT/HCPCS: 76775 ==

== ENCOUNTER 2025-03-09 14:19 | Outpatient (REF) | payer MEDICARE, SELFPAY ==
--- OUTSIDE RECORDS SUMMARY | 2025-03-09 15:44 | XMS_ITS | Clinical Summary ---
Author Organization [facility] Address [address] [facility] [address] [place] [address] Phone Care Team Providers Care Cellar Supervisor Name Role Phone Varsha Chavis NP [...] age to complete this topic Insurance Aetna [facility] Adv PPO ([id number]) Aetna MCR Adv PPO ([id number]) Care Teams Cellar Supervisor Relationship Specialty Start Date End Date Varsha Chavis NP [address] [place] [address] PCP - General Nurse Practitioner 11/15/21
[2025-03-09 18:10] LABS: Anion Gap 8 (12-20); Blood Urea Nitrogen 44 mg/dL (9-16); Calcium 9.0 mg/dL (8.4-10.2); Carbon Dioxide 22 mmol/L (22-29); Chloride 114 mmol/L (96-108); Estimated Glomerular Filt Rate 19; Potassium 5.1 mmol/L (3.3-5.1); Sodium 139 mmol/L (135-145)
== END 2025-03-09 14:20 | disposition home or self-care (01) ==
LOC: HO.HKASLDS 14:19
PROVIDERS: Visit Provider Internal Medicine Nephrology
DX: N17.9 Acute kidney failure, unspecified (principal)
CPT/HCPCS: 36415; 80051; 82310; 82565; 84520

== ENCOUNTER 2025-03-12 13:54 | Outpatient (AMB) | payer MEDICARE, SELFPAY ==
--- OUTSIDE RECORDS SUMMARY | 2025-03-12 14:39 | XMS_ITS | Clinical Summary ---
Author Organization [facility] Address [address] [facility] [address] [place] [address] Phone Care Team Providers Care Campus Receptionist Name Role Phone Varsha Chavis NP Primary [...] age to complete this topic Insurance Aetna [facility] Adv PPO ([id number]) Aetna MCR Adv PPO ([id number]) Care Teams Campus Receptionist Relationship Specialty Start Date End Date Varsha Chavis NP [address] [place] [address] PCP - General Nurse Practitioner 11/15/21
--- NOTE | 2025-03-12 14:42 | HO.NEPHOV_ITS ---
Vital Signs 03/12/25 14:44 Height 6 ft 1 in Weight 234 lb 8 oz BMI 30.9 BP 130/80 Blood Pressure Location Lt brachial Position Sitting Pulse 47 L Pulse Source Pulse Oximeter Pulse Oximetry (%) 99 Oxygen Delivery Method Room Air Intake Visit Reasons: 1m follow up-Conf Driver License Reviewing Officer Required: No Accompanied by: Self / Same As Patient Allergies cat dander Allergy (Verified 03/12/25 14:44) Unknown HPI Comments Details: Eloy was seen in the office in follow-up of his chronic kidney disease and hypertension. He has longstanding hypertension as as CKD. 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 He denies any nausea, vomiting, diarrhea, chest pain, shortness of breath, pedal edema, orthostatic symptoms. He does not take any nonsteroidal anti-inflammatories. He is compliant with his medications. He does not monitor his blood pressure closely at home. His weight has been stable. [facility] Medical History (Updated 02/10/25 @ 15:32 by Eyad Spears MD) CKD stage 3a, GFR 45-59 ml/min Hypertension Angiomyolipoma Secondary hyperparathyroidism (of renal origin) Surgical History History of back surgery Family History Mother Diabetes Hypertension Sister Diabetes Hypertension Social History Alcohol intake: never Patient Tobacco Use Status: Never used Tobacco Review of Systems Const All systems reviewed & are unremarkable except as noted in HPI and below Physical Exam Vital Signs: Last Vital Signs Pulse 47 L 03/12/25 14:44 BP 138/84 03/12/25 14:44 Pulse Ox 99 03/12/25 14:44 Oxygen Delivery Method Room Air 03/12/25 14:44 BMI result Body Mass Index 30.9 Const General: comfortable and no acute distress Orientation/consciousness: patient oriented x3 HEENT Head: Yes normocephalic Mouth: Normal oral and palatal mucosa present Eyes EOM: EOMs intact bilaterally Neck Neck: Yes supple Resp Auscultation: clear to auscultation bilaterally Cardio Jugular venous distension: no JVD Rate: regular rate GI Palpation (GI): Soft to palpation Auscultation: normal bowel sounds General: Yes no CVA tenderness Back/Spine/Pelvis Back: no CVA tenderness Skin General skin exam: no rashes or lesions noted Neuro General: patient oriented x3 and moves all extremities Extrem General: Yes no pedal edema Results Reviewed Nephrology Results: Hgb, (14.0-18.0) 11.9 g/dl L 02/05/25 WBC, (4.8-10.8) 7.2 X10*3/uL 02/05/25 Plt Count, (160-400) 288 X10*3/uL 02/05/25 Sodium, (135-145) 139 mmol/L 03/09/25 Potassium, (3.3-5.1) 5.1 mmol/L 03/09/25 Chloride, (96-108) 114 mmol/L H 03/09/25 Carbon Dioxide, (22-29) 22 mmol/L 03/09/25 BUN, (9-16) 44 mg/dL H 03/09/25 Creatinine, (0.5-1.4) 3.21 mg/dL H 03/09/25 Calcium, (8.4-10.2) 9.0 mg/dL 03/09/25 Phosphorus, (2.7-4.5) 3.5 mg/dL 02/05/25 PTH Intact, (8.7-77.1) 381.9 pg/mL H 02/05/25 Renal US 03/04/25 Assessment & Plan Assessment & Plan (1) CKD stage 3a, GFR 45-59 ml/min: Code(s): N18.31 - Chronic kidney disease, stage 3a Category: Medical (2) Hypertension: Code(s): I10 - Essential (primary) hypertension Category: Medical Qualifiers: Hypertension type: primary hypertension Qualified Code(s): I10 - Essential (primary) hypertension (3) Secondary hyperparathyroidism (of renal origin): Code(s): N25.81 - Secondary hyperparathyroidism of renal origin Category: Medical Plan His blood pressure is currently well controlled. He had LUIGI in early 1999 with serum creatinine peaking at 5. 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 He had renal biopsy in the past which showed 30% g lomerulosclerosis as well as interstitial fibrosis. His previous documented last 24 hour urine collection for creatinine clearance showed a GFR of 51 mL/minute. He had embolization of angiolipoma by Dr Owen Mcclain. Doppler of his renal arteries an MRI of the kidneys were unremarkable. His serum creatinine has gone up but stable. He has been taking calcitriol for secondary hyperparathyroidism. All his current blood work was reviewed. I did not make any medication changes today. He was encouraged to maintain good hydration and avoid nonsteroidal anti-inflammatories along with sodium low-sodium diet. All questions answered. Follow-up appointment given Orders: Orders Lipid Panel 2 Months I10 - Essential (primary) hypertension, N18.31 - Chronic kidney disease, stage 3a, N25.81 - Secondary hyperparathyroidism of renal origin Hemoglobin A1c 2 Months I10 - Essential (primary) hypertension, N18.31 - Chronic kidney disease, stage 3a, N25.81 - Secondary hyperparathyroidism of renal origin Calcium 2 Months I10 - Essential (primary) hypertension, N18.31 - Chronic kidney disease, stage 3a, N25.81 - Secondary hyperparathyroidism of renal origin Complete Blood Count Auto Diff 2 Months I10 - Essential (primary) hypertension, N18.31 - Chronic kidney disease, stage 3a, N25.81 - Secondary hyperparathyroidism of renal origin Electrolytes 2 Months I10 - Essential (primary) hypertension, N18.31 - Chronic kidney disease, stage 3a, N25.81 - Secondary hyperparathyroidism of renal origin Blood Urea Nitrogen 2 Months I10 - Essential (primary) hypertension, N18.31 - Chronic kidney disease, stage 3a, N25.81 - Secondary hyperparathyroidism of renal origin Creatinine 2 Months I10 - Essential (primary) hypertension, N18.31 - Chronic kidney disease, stage 3a, N25.81 - Secondary hyperparathyroidism of renal origin Phosphorus 2 Months I10 - Essential (primary) hypertension, N18.31 - Chronic kidney disease, stage 3a, N25.81 - Secondary hyperparathyroidism of renal origin Coding Level of Care Code Est Pt Level 4 (90697) Diagnoses CKD stage 3a, GFR 45-59 ml/min N18.31 Primary hypertension I10 Hypertension type: primary hypertension Secondary hyperparathyroidism (of renal origin) N25.81
[2025-03-12 14:44] VITALS: BP 130/80; PULSE 47; O2SAT 99; BMI 30.9
== END 2025-03-12 15:21 | disposition home or self-care (01) ==
LOC: HO.HKAS 13:54
PROVIDERS: PCP Internal Medicine Pulmonary Disease; Visit Provider Internal Medicine Nephrology
DX: N18.31 Chronic kidney disease, stage 3a (principal); I10 Essential (primary) hypertension; N25.81 Secondary hyperparathyroidism of renal origin
CPT/HCPCS: 99214

== ENCOUNTER → 2025-03-12 13:54 | Outpatient (BNVA) | payer MEDICARE, SELFPAY | PROVIDERS: PCP Internal Medicine Pulmonary Disease; Visit Provider Internal Medicine Nephrology | DX: I12.9 Hypertensive chronic kidney disease with stage 1 through stage 4 chronic kidney disease, or unspecified chronic kidney disease (principal); N18.31 Chronic kidney disease, stage 3a; N25.81 Secondary hyperparathyroidism of renal origin | CPT/HCPCS: 99212 ==